=== PATIENT | female | born 1955 | race African-American/Black ===

== ENCOUNTER 2021-02-18 00:27 | Emergency (ER) | payer MEDICARE, MEDICAID ==
[2021-02-18 02:54] LABS: Bilirubin Neg (Negative); Blood, Urine Negative (Negative); Clarity Clear (Clear); Glucose, Urine (Dipstick) Normal (Negative); Ketone, Urine Negative (Negative); Leukocyte Negative (Negative); Nitrite Negative (Negative); Protein, Urine (Dipstick) 100 mg/dl (Neg-Trace)
[2021-02-18 03:05] LABS: Bacteria/HPF None Seen HPF (None Seen); RBC/HPF 0-3 HPF (0-3); Squamous Epithelial 0-3 HPF (0-3); WBC/HPF 0-3 HPF (0-3)
[2021-02-18] MEDS ORDERED: Cyclobenzaprine 10 MG TAB ONE (03:59)
[2021-02-18] MEDS ORDERED: HYDROcodone/Acetaminophen 5/325 mg Tablet ONE (04:00)
== END 2021-02-18 04:10 | disposition home or self-care (01) ==
LOC: CSHERS 00:27
DX: S39.012A Strain of muscle, fascia and tendon of lower back, initial encounter (principal); E11.9 Type 2 diabetes mellitus without complications; I10 Essential (primary) hypertension; F17.210 Nicotine dependence, cigarettes, uncomplicated
CPT/HCPCS: 72100; 81003; 81015

== ENCOUNTER 2022-06-02 18:06 | Emergency (ER) | payer MEDICARE, MEDICAID | END 2022-06-02 20:05 | disposition left against medical advice (07) | LOC: CSHERS 18:06 | DX: Z53.21 Procedure and treatment not carried out due to patient leaving prior to being seen by health care provider (principal) ==

== ENCOUNTER 2022-06-05 22:59 | Observation (INO) | payer MEDICARE, MEDICAID ==
[2022-06-06] MEDS ORDERED: Morphine 4 MG/ML VIAL ONE (00:51)
[2022-06-06] MEDS ORDERED: Ketorolac Tromethamine 30 MG/ML VIAL ONE (00:51)
[2022-06-06 00:58] LABS: ALT (SGPT) 18 U/L (8-55); AST (SGOT) 22 U/L (5-34); Albumin 3.9 g/dL (3.4-4.8); Alkaline Phosphatase 92 U/L (40-110); Anion Gap 15 mmol/L (10-20); BUN (Urea Nitrogen) 19 mg/dL (9.8-20.1); Bilirubin, Total 0.2 mg/dL (0.2-1.2); Calc. Creatinine Clearance 0 mL/min (70-130); Calcium 9.1 mg/dL (7.8-10.44); Carbon Dioxide 23 mmol/L (23-31); Chloride 107 mmol/L (98-107); Estimated GFR 68; Globulin 2.9 g/dL (2.4-3.5); Glucose 144 mg/dL (80-115); Potassium 3.9 mmol/L (3.5-5.1); Protein, Total 6.8 g/dL (5.8-8.1); Sodium 141 mmol/L (136-145)
[2022-06-06 01:03] LABS: #Eosinphils 0.2 10x3/uL (0.0-0.5); #Monocytes 0.7 10x3/uL (0.0-1.1); %Basophils 0.5 % (0.0-2.0); %Eosinophils 2.3 % (0.0-6.0); %Lymphocytes 25.1 % (18.0-47.0); %Monocytes 8.3 % (0.0-10.0); %Neutrophils 63.7 % (40.0-75.0); Hemoglobin 12.4 g/dL (12.0-15.5); Mean Corpuscular HGB CONC 32.8 g/dL (32.0-36.0); Mean Corpuscular Hemoglobin 28.5 pg (27.0-33.0); Mean Corpuscular Volume 86.9 fl (81.6-98.3); Mean Platelet Volume 9.9 fl (7.4-10.4); Platelet Count 285 10x3/uL (150-450); RBC Distribution Width 14.4 % (11.5-14.5); Red Blood Cell (RBC) Count 4.35 10x6/uL (3.90-5.03); White Blood Cell (WBC) Count 7.9 10x3/uL (3.5-10.5)
[2022-06-06 01:18] LABS: CKMB 3.2 ng/mL (0-6.6)
[2022-06-06] MEDS ORDERED: Aspirin Chewable 81 MG TAB ONE (02:18)
[2022-06-06] MEDS ORDERED: Nitroglycerin 0.4 MG TAB (25 Tab Bottle) SL PRN (03:33)
[2022-06-06 04:05] VITALS: BMI 27.3
[2022-06-06] MEDS: Morphine 2 MG/ML VIAL SLOW IVP PRN ×3 (04:58→23:49)
[2022-06-06 05:24] LABS: Troponin I 0.162 ng/mL (< 0.028)
[2022-06-06 05:25] LABS: Cardiac Risk 3.2 (Less than 4.5); Cholesterol 95 mg/dl (< 200 Desired); HDL Cholesterol 30 mg/dL (>60 Neg Risk); LDL Cholesterol, Calculated 33 mg/dL; Magnesium 1.8 mg/dL (1.6-2.6); Triglycerides 161 mg/dL (Less than 150)
[2022-06-06 07:11] LABS: Troponin I 0.163 ng/mL (< 0.028)
[2022-06-06] MEDS ORDERED: Aspirin Chewable 81 MG TAB PO SCH (09:00)
[2022-06-06] MEDS: ALPRAZolam 0.5 MG TAB PO PRN (12:03)
[2022-06-06] MEDS: Amlodipine 5 MG TAB PO SCH (13:42)
[2022-06-06] MEDS: Amoxicillin/Potassium Clav 875 MG TAB PO SCH ×2 (13:42→23:44)
[2022-06-06] MEDS: Lisinopril 20 MG TAB PO SCH (13:42)
[2022-06-06] MEDS: Aspirin 81 mg Enteric Coated Tablet PO SCH (13:42)
[2022-06-06] MEDS: hydrALAZINE 25 MG TAB PO SCH ×2 (13:42→20:45)
[2022-06-07 04:16] LABS: #Basophils 0.1 10x3/uL (0.0-0.2); #Eosinphils 0.2 10x3/uL (0.0-0.5); #Monocytes 0.6 10x3/uL (0.0-1.1); #Neutrophils 3.3 10x3/uL (1.5-8.4); %Basophils 0.7 % (0.0-2.0); %Eosinophils 2.5 % (0.0-6.0); %Lymphocytes 40.1 % (18.0-47.0); %Monocytes 8.6 % (0.0-10.0); Hemoglobin 12.1 g/dL (12.0-15.5); Mean Corpuscular HGB CONC 31.9 g/dL (32.0-36.0); Mean Corpuscular Hemoglobin 28.4 pg (27.0-33.0); Platelet Count 276 10x3/uL (150-450); RBC Distribution Width 14.7 % (11.5-14.5); Red Blood Cell (RBC) Count 4.26 10x6/uL (3.90-5.03); White Blood Cell (WBC) Count 6.9 10x3/uL (3.5-10.5)
[2022-06-07 04:23] LABS: Anion Gap 12 mmol/L (10-20); BUN (Urea Nitrogen) 14 mg/dL (9.8-20.1); Calc. Creatinine Clearance 73 mL/min (70-130); Carbon Dioxide 23 mmol/L (23-31); Chloride 109 mmol/L (98-107); Estimated GFR 86; Glucose 99 mg/dL (80-115); Potassium 4.3 mmol/L (3.5-5.1); Sodium 140 mmol/L (136-145)
[2022-06-07] MEDS: Lisinopril 20 MG TAB PO SCH (10:18)
[2022-06-07] MEDS: hydrALAZINE 25 MG TAB PO SCH ×2 (10:21→22:12)
[2022-06-07] MEDS: Amlodipine 5 MG TAB PO SCH (10:21)
[2022-06-07] MEDS: Morphine 4 MG/ML VIAL SLOW IVP PRN ×3 (10:22→22:11)
[2022-06-07] MEDS: Aspirin 81 mg Enteric Coated Tablet PO SCH (10:22)
[2022-06-07] MEDS: Fluticasone Propionate Nasal Spray 16 gm Bottle NASAL SCH (10:49)
[2022-06-07] MEDS: ALPRAZolam 0.5 MG TAB PO PRN (13:25)
[2022-06-07] MEDS: Amoxicillin/Potassium Clav 875 MG TAB PO SCH (13:25)
[2022-06-07 14:29] LABS: Hemoglobin A1c 6.8 % (4.0-6.0)
[2022-06-07] MEDS ORDERED: cefTRIAXone\\ROCEPHIN 1 GM in Sodium Chloride 0.9% 100 ML IVPB SCH (22:00)
[2022-06-08] MEDS: ALPRAZolam 0.5 MG TAB PO PRN ×2 (02:33→10:42)
[2022-06-08 05:09] LABS: #Basophils 0.1 10x3/uL (0.0-0.2); #Eosinphils 0.2 10x3/uL (0.0-0.5); #Monocytes 0.6 10x3/uL (0.0-1.1); #Neutrophils 3.4 10x3/uL (1.5-8.4); %Basophils 0.7 % (0.0-2.0); %Eosinophils 2.8 % (0.0-6.0); %Lymphocytes 38.3 % (18.0-47.0); %Monocytes 8.3 % (0.0-10.0); %Neutrophils 49.6 % (40.0-75.0); Mean Corpuscular HGB CONC 32.3 g/dL (32.0-36.0); Mean Corpuscular Hemoglobin 28.6 pg (27.0-33.0); Mean Corpuscular Volume 88.5 fl (81.6-98.3); Mean Platelet Volume 9.7 fl (7.4-10.4); Platelet Count 270 10x3/uL (150-450); RBC Distribution Width 14.4 % (11.5-14.5); Red Blood Cell (RBC) Count 4.19 10x6/uL (3.90-5.03); White Blood Cell (WBC) Count 6.8 10x3/uL (3.5-10.5)
[2022-06-08 05:21] LABS: Anion Gap 12 mmol/L (10-20); BUN (Urea Nitrogen) 13 mg/dL (9.8-20.1); Calc. Creatinine Clearance 78 mL/min (70-130); Carbon Dioxide 23 mmol/L (23-31); Chloride 106 mmol/L (98-107); Estimated GFR 93; Glucose 109 mg/dL (80-115); Potassium 3.8 mmol/L (3.5-5.1); Sodium 137 mmol/L (136-145)
[2022-06-08 08:17] VITALS: TEMP 98.1
[2022-06-08] MEDS ORDERED: Amoxicillin/Potassium Clav 875 MG TAB PO SCH (09:00)
[2022-06-08] MEDS: Aspirin 81 mg Enteric Coated Tablet PO SCH (10:42)
[2022-06-08] MEDS: Amlodipine 5 MG TAB PO SCH (10:42)
[2022-06-08] MEDS: hydrALAZINE 25 MG TAB PO SCH (10:42)
[2022-06-08] MEDS: Fluticasone Propionate Nasal Spray 16 gm Bottle NASAL SCH (10:46)
[2022-06-08] MEDS: Lisinopril 20 MG TAB PO SCH (10:51)
[2022-06-08 10:52] VITALS: BP 140/69
== END 2022-06-08 10:45 | disposition home or self-care (01) ==
LOC: CSHERS 22:59 → CSHTELE 06-06 03:45
PROVIDERS: ADMIT Family Medicine; ATTEND Internal Medicine
DX: R68.84 Jaw pain (principal); R51.9 Headache, unspecified; R77.8 Other specified abnormalities of plasma proteins; J32.9 Chronic sinusitis, unspecified; K08.89 Other specified disorders of teeth and supporting structures; Z79.84 Long term (current) use of oral hypoglycemic drugs; Z79.899 Other long term (current) drug therapy; Z20.822 Contact with and (suspected) exposure to COVID-19; Z85.3 Personal history of malignant neoplasm of breast; Z88.8 Allergy status to other drugs, medicaments and biological substances; I10 Essential (primary) hypertension; I25.10 Atherosclerotic heart disease of native coronary artery without angina pectoris; E11.9 Type 2 diabetes mellitus without complications; F41.9 Anxiety disorder, unspecified
CPT/HCPCS: 70486; 71045; 80048 ×2; 80061; 82553; 82962 ×3; 83036; 83735; 84484 ×2; 85025 ×2; 93005; 93306; 96372 ×3; 96374; 96375; 96376 ×2; 99285; G0378 ×3; U0003; U0005; 36415; 36416; 80053; 84443; J0696; J1650; J1885; J2270; J2272; J3490

== ENCOUNTER 2023-06-10 09:34 | Inpatient (IN) | payer MEDICARE ==
[2023-06-10 10:41] LABS: Influenza A by NAA Not Detected (NotDetected); Influenza B by NAA Not Detected (NotDetected); SARS-CoV-2 NAA Rapid Test Not Detected (NotDetected)
[2023-06-10] MEDS ORDERED: Acetaminophen 500 MG TAB ONE (12:34)
[2023-06-10 12:46] LABS: #Eosinphils 0.2 10x3/uL (0.0-0.5); #Monocytes 0.6 10x3/uL (0.0-1.1); #Neutrophils 4.1 10x3/uL (1.5-8.4); %Basophils 0.5 % (0.0-2.0); %Eosinophils 2.6 % (0.0-6.0); %Lymphocytes 33.6 % (18.0-47.0); %Monocytes 8.6 % (0.0-10.0); %Neutrophils 54.6 % (40.0-75.0); Hematocrit 41.8 % (34.9-44.5); Hemoglobin 14.2 g/dL (12.0-15.5); Mean Corpuscular Hemoglobin 29.7 pg (27.0-33.0); Mean Corpuscular Volume 87.4 fl (81.6-98.3); Platelet Count 306 10x3/uL (150-450); RBC Distribution Width 14.1 % (11.5-14.5); Red Blood Cell (RBC) Count 4.78 10x6/uL (3.90-5.03); White Blood Cell (WBC) Count 7.5 10x3/uL (3.5-10.5)
[2023-06-10 12:59] LABS: ALT (SGPT) 8 U/L (8-55); AST (SGOT) 10 U/L (5-34); Albumin 4.1 g/dL (3.4-4.8); Alkaline Phosphatase 113 U/L (40-110); Anion Gap 13 mmol/L (10-20); BUN (Urea Nitrogen) 14 mg/dL (9.8-20.1); Bilirubin, Total 0.3 mg/dL (0.2-1.2); Calc. Creatinine Clearance 0 mL/min (70-130); Carbon Dioxide 25 mmol/L (23-31); Chloride 109 mmol/L (98-107); Estimated GFR 84; Globulin 2.6 g/dL (2.4-3.5); Glucose 83 mg/dL (80-115); Potassium 4.1 mmol/L (3.5-5.1); Protein, Total 6.7 g/dL (5.8-8.1); Sodium 143 mmol/L (136-145)
[2023-06-10] MEDS ORDERED: Calcium Carbonate 500 MG ChewTAB PO PRN (14:27)
[2023-06-10] MEDS ORDERED: Acetaminophen 325 MG TAB PO PRN (14:27)
[2023-06-10] MEDS ORDERED: Ondansetron PF 4 MG/2 ML Vial IVP PRN (14:27)
[2023-06-10] MEDS ORDERED: Senokot S 8.6-50 MG TAB PO PRN (14:27)
[2023-06-10] MEDS ORDERED: traMADol HCl 50 MG TAB PO PRN (14:34)
[2023-06-10 17:06] LABS: Troponin I 0.164 ng/mL (< 0.028)
[2023-06-10] MEDS ORDERED: Enoxaparin 80 MG (0.8 mL) SYRINGE ONE (19:32)
[2023-06-10] MEDS: Enoxaparin 80 MG (0.8 mL) SYRINGE SC SCH (19:35)
[2023-06-10] MEDS: Loratadine 10 MG TAB PO SCH (19:35)
[2023-06-10 20:17] LABS: Troponin I 0.186 ng/mL (< 0.028)
[2023-06-10] MEDS ORDERED: hydrALAZINE 25 MG TAB ONE (21:15)
[2023-06-10] MEDS: Fluticasone Propionate Nasal Spray 16 gm Bottle NASAL SCH (21:25)
[2023-06-10] MEDS: hydrALAZINE 25 MG TAB PO SCH (21:25)
[2023-06-10 21:54] VITALS: BMI 32.8
[2023-06-10] MEDS: Nitroglycerin 2% Ointment 1 INCH/1 GM Packet TOP SCH (23:52)
[2023-06-11 04:09] LABS: #Basophils 0.1 10x3/uL (0.0-0.2); #Eosinphils 0.2 10x3/uL (0.0-0.5); #Monocytes 0.5 10x3/uL (0.0-1.1); %Basophils 0.9 % (0.0-2.0); %Eosinophils 2.7 % (0.0-6.0); %Lymphocytes 43.2 % (18.0-47.0); %Monocytes 8.2 % (0.0-10.0); %Neutrophils 44.8 % (40.0-75.0); Hematocrit 40.1 % (34.9-44.5); Hemoglobin 13.4 g/dL (12.0-15.5); Mean Corpuscular HGB CONC 33.4 g/dL (32.0-36.0); Mean Corpuscular Hemoglobin 29.1 pg (27.0-33.0); Mean Platelet Volume 9.6 fl (7.4-10.4); Platelet Count 281 10x3/uL (150-450); RBC Distribution Width 14.2 % (11.5-14.5); Red Blood Cell (RBC) Count 4.61 10x6/uL (3.90-5.03); White Blood Cell (WBC) Count 6.6 10x3/uL (3.5-10.5)
[2023-06-11 04:28] LABS: ALT (SGPT) 10 U/L (8-55); AST (SGOT) 10 U/L (5-34); Albumin 3.7 g/dL (3.4-4.8); Alkaline Phosphatase 99 U/L (40-110); Anion Gap 15 mmol/L (10-20); BUN (Urea Nitrogen) 12 mg/dL (9.8-20.1); Bilirubin, Total 0.6 mg/dL (0.2-1.2); Calc. Creatinine Clearance 90 mL/min (70-130); Calcium 8.8 mg/dL (7.8-10.44); Carbon Dioxide 21 mmol/L (23-31); Cardiac Risk 3.8 (Less than 4.5); Chloride 107 mmol/L (98-107); Cholesterol 111 mg/dl (< 200 Desired); Estimated GFR 89; Globulin 2.8 g/dL (2.4-3.5); Glucose 127 mg/dL (80-115); HDL Cholesterol 29 mg/dL (>60 Neg Risk); LDL Cholesterol, Calculated 50 mg/dL; Potassium 3.7 mmol/L (3.5-5.1); Protein, Total 6.5 g/dL (5.8-8.1); Sodium 139 mmol/L (136-145); Triglycerides 158 mg/dL (Less than 150)
[2023-06-11] MEDS: Enoxaparin 80 MG (0.8 mL) SYRINGE SC SCH (09:36)
[2023-06-11] MEDS: Lisinopril 20 MG TAB PO SCH (09:36)
[2023-06-11] MEDS: Amlodipine 5 MG TAB PO SCH (09:37)
[2023-06-11] MEDS: Loratadine 10 MG TAB PO SCH (09:37)
[2023-06-11] MEDS: Aspirin 81 mg Enteric Coated Tablet PO SCH (09:37)
[2023-06-11] MEDS ORDERED: ALPRAZolam 0.5 MG TAB PO PRN (10:49)
[2023-06-11 11:39] LABS: Hemoglobin A1c 6.5 % (4.0-6.0)
[2023-06-11 13:02] VITALS: BP 128/73; TEMP 98.1
[2023-06-11] MEDS ORDERED: Amlodipine 5 MG TAB PO SCH (21:00)
== END 2023-06-11 15:00 | disposition home or self-care (01) | DRG 305 ==
LOC: SUATTDRO 09:34 → CSHERS 09:34 → CSHERHOLD 14:38 → CSHICU 21:41 → OBSVTOIN 06-11 09:17
PROVIDERS: ADMIT Internal Medicine; ATTEND Family Medicine
DX: I10 Essential (primary) hypertension (principal); J32.8 Other chronic sinusitis; E11.9 Type 2 diabetes mellitus without complications; F17.210 Nicotine dependence, cigarettes, uncomplicated; I25.10 Atherosclerotic heart disease of native coronary artery without angina pectoris; B96.89 Other specified bacterial agents as the cause of diseases classified elsewhere; J06.9 Acute upper respiratory infection, unspecified; F39 Unspecified mood [affective] disorder; Z11.52 Encounter for screening for COVID-19; Z88.8 Allergy status to other drugs, medicaments and biological substances; Z85.3 Personal history of malignant neoplasm of breast; Z90.710 Acquired absence of both cervix and uterus; Z79.82 Long term (current) use of aspirin; Z79.891 Long term (current) use of opiate analgesic; Z79.899 Other long term (current) drug therapy
CPT/HCPCS: 36415; 71046; 80053; 80061; 83036; 83880; 84484; 85025; 93005; 93306; 94760; 94762; 96372; G0378; J1650

== ENCOUNTER 2023-11-12 08:14 | Emergency (ER) | payer MEDICARE ==
[2023-11-12] MEDS ORDERED: Ondansetron ODT 4 MG TAB ONE (08:45)
[2023-11-12] MEDS ORDERED: Ketorolac Tromethamine 30 MG (1 mL) VIAL ONE (08:45)
== END 2023-11-12 09:17 | disposition home or self-care (01) ==
LOC: CSHERS 08:14
DX: K08.89 Other specified disorders of teeth and supporting structures (principal); E11.9 Type 2 diabetes mellitus without complications; I10 Essential (primary) hypertension; F17.210 Nicotine dependence, cigarettes, uncomplicated; Z79.899 Other long term (current) drug therapy
CPT/HCPCS: J1885; Q0162; 96372; 99282

== ENCOUNTER 2023-11-14 22:03 | Emergency (ER) | payer MEDICARE ==
[2023-11-14] MEDS ORDERED: HYDROcodone/Acetaminophen 5/325 mg Tablet ONE (22:36)
== END 2023-11-14 22:57 | disposition home or self-care (01) ==
LOC: CSHERS 22:03
DX: K08.89 Other specified disorders of teeth and supporting structures (principal); I10 Essential (primary) hypertension; E11.9 Type 2 diabetes mellitus without complications; F17.210 Nicotine dependence, cigarettes, uncomplicated; Z79.4 Long term (current) use of insulin; Z79.899 Other long term (current) drug therapy
CPT/HCPCS: 99283

== ENCOUNTER 2023-12-16 03:53 | Emergency (ER) | payer MEDICARE ==
[2023-12-16] MEDS ORDERED: Acetaminophen 500 MG TAB ONE (04:14)
[2023-12-16 04:50] LABS: SARS-CoV-2 E Target Negative; SARS-CoV-2 N2 Target Negative; SARS-CoV-2 NAA Rapid Test Not Detected (NotDetected); SARS-CoV-2 RdRP gene Negative
== END 2023-12-16 05:37 | disposition home or self-care (01) ==
LOC: CSHERS 03:53
DX: J01.90 Acute sinusitis, unspecified (principal); E11.9 Type 2 diabetes mellitus without complications; I10 Essential (primary) hypertension; F17.210 Nicotine dependence, cigarettes, uncomplicated; Z79.899 Other long term (current) drug therapy
CPT/HCPCS: 99283; U0002